=== PATIENT | male | born 1965 | race Caucasian/White ===

== ENCOUNTER 2024-09-12 16:41 | Emergency (ER) | payer MEDICAID ==
[~2024-09-12] VITALS: Ht 167.6 cm; Wt 68.0 kg
[2024-09-12] MEDS ORDERED: TDAP [DIPH/PERTUSSIS/TET] 0.5 ML VIAL IM ONE (17:35)
[2024-09-12] MEDS ORDERED: HALOPERIDOL LACTATE INJ 5 MG/ML VIAL ONE ×2 (17:35→19:41)
[2024-09-12] MEDS: TDAP [DIPH/PERTUSSIS/TET] 0.5 ML VIAL IM ONE (17:42)
[2024-09-12] MEDS: HALOPERIDOL LACTATE INJ 5 MG/ML VIAL IM ONE ×2 (17:42→19:43)
[2024-09-12] MEDS ORDERED: ACET-637 PO (19:30)
[2024-09-12] MEDS ORDERED: ACET325T53 PO (19:30)
[2024-09-12] MEDS ORDERED: ALBU8.5H8 IH (19:30)
[2024-09-12] MEDS ORDERED: ASPI-1420 PO (19:30)
[2024-09-12] MEDS ORDERED: GABA600T12 PO (19:30)
[2024-09-12] MEDS ORDERED: DIVA-78 PO (19:30)
[2024-09-12] MEDS ORDERED: ATOR40TA PO (19:30)
[2024-09-12] MEDS ORDERED: NICO-676 TP (19:30)
[2024-09-12] MEDS ORDERED: POLY119P17 PO (19:30)
[2024-09-12] MEDS ORDERED: MELA5TAB PO (19:30)
[2024-09-12] MEDS ORDERED: DOCU100C36 PO (19:30)
[2024-09-12] MEDS ORDERED: CHOL100043 PO (19:30)
[2024-09-12] MEDS ORDERED: MULT-213 PO (19:30)
[2024-09-12] MEDS ORDERED: DIVA250T4 PO (19:30)
[2024-09-12] MEDS ORDERED: CYAN100096 PO (19:30)
[2024-09-12] MEDS ORDERED: FLUT1BLS14 IH (19:30)
[2024-09-12] MEDS ORDERED: PRAM0.5T3 PO (19:30)
[2024-09-12] MEDS ORDERED: FOLI0.8T3 PO (19:30)
[2024-09-12] MEDS ORDERED: TIOT18CA3 IH (19:31)
[2024-09-12] MEDS ORDERED: THIA100T68 PO (19:31)
[2024-09-12] MEDS ORDERED: OLAN7.5T3 PO (19:31)
[2024-09-12] MEDS ORDERED: TRAZ-182 PO (19:31)
[2024-09-12] MEDS ORDERED: SERT25TA5 PO (19:31)
[2024-09-12 20:26] LABS: BASOPHILS # (AUTO) 0.1 K/uL (0.0-0.2); BASOPHILS % (AUTO) 0.4 % (0.0-2.0); EOSINOPHILS % (AUTO) 0.3 % (0.0-6.0); HEMATOCRIT 44 % (39-51); HEMOGLOBIN 14.7 g/dL (13.5-17.5); LYMPHOCYTES # (AUTO) 1.6 K/uL (0.8-4.8); LYMPHOCYTES % (AUTO) 12.9 % (20.0-44.0); MEAN CORPUSCULAR HEMOGLOBIN 31 PG (26.0-33.0); MEAN CORPUSCULAR HGB CONC 34 g/dl (31.0-36.0); MEAN CORPUSCULAR VOLUME 91 fL (80-96); MONOCYTES # (AUTO) 1.2 K/uL (0.1-1.30); MONOCYTES % (AUTO) 9.7 % (2.0-12.0); NEUTROPHILS # (AUTO) 9.5 K/uL (1.8-8.9); NEUTROPHILS % (AUTO) 76.7 % (43.0-81.0); PLATELET COUNT (AUTO) 317 K/uL (150-450); RED BLOOD CELL COUNT(AUTO) 4.82 MIL/uL (4.5-6.0); RED CELL DISTRIBUTION WIDTH 14.6 % (11.5-15.0); WHITE BLOOD COUNT (AUTO) 12.4 K/uL (4.3-11.0)
[2024-09-12] MEDS ORDERED: LORAZEPAM INJ 2 MG/ML VIAL ONE ×2 (20:29→20:58)
[2024-09-12] MEDS: IV NS 0.9% 500 ML BAG IV ONE (20:30)
[2024-09-12] MEDS: LORAZEPAM INJ 2 MG/ML VIAL IV ONE ×2 (20:32→21:03)
[2024-09-12 20:48] LABS: CALCIUM, SERUM 9.4 mg/dL (8.5-10.1); CREATININE 0.9 mg/dL (0.6-1.3); POTASSIUM 4.3 mmol/L (3.5-5.1)
[2024-09-13 00:30] VITALS: BP 119/68; TEMP 97.9; O2SAT 99
== END 2024-09-13 00:30 ==
LOC: ER 17:36
DX: S01.01XA Laceration without foreign body of scalp, initial encounter (principal); S01.111A Laceration without foreign body of right eyelid and periocular area, initial encounter; G20.A1 Parkinson's disease without dyskinesia, without mention of fluctuations; J44.9 Chronic obstructive pulmonary disease, unspecified; F02.84 Dementia in other diseases classified elsewhere, unspecified severity, with anxiety; F02.811 Dementia in other diseases classified elsewhere, unspecified severity, with agitation; Z23 Encounter for immunization; Z79.51 Long term (current) use of inhaled steroids; Z79.899 Other long term (current) drug therapy; Z88.0 Allergy status to penicillin; W18.30XA Fall on same level, unspecified, initial encounter; Y93.89 Activity, other specified; Y92.89 Other specified places as the place of occurrence of the external cause; Y99.8 Other external cause status
CPT/HCPCS: 99285; 96374; 70450; 90471; 90715; 96376; 85025; 80048; 36415; 96372; J2060 ×2; J1630 ×2; J7040

== ENCOUNTER 2024-09-15 14:04 | Inpatient (IN) | payer MEDICAID ==
[~2024-09-15] VITALS: Ht 167.6 cm; Wt 61.2 kg
[~2024-09-15 14:04] MED LIST: ACET-637 PO; ACET325T53 PO; ALBU8.5H8 IH; ASPI-1420 PO; ATOR40TA PO; CHOL100043 PO; CYAN100096 PO; DIVA-78 PO; DIVA250T4 PO; DOCU100C36 PO; FLUT1BLS14 IH; FOLI0.8T3 PO; GABA600T12 PO; MELA5TAB PO; MULT-213 PO; NICO-676 TP; OLAN7.5T3 PO; POLY119P17 PO; PRAM0.5T3 PO; SERT25TA5 PO; THIA100T68 PO; TIOT18CA3 IH; TRAZ-182 PO
[2024-09-15] MEDS: IV NS 0.9% 1,000 ML BAG IV ONE ×2 (14:15→16:00)
[2024-09-15] MEDS ORDERED: ACETAMINOPHEN 650 MG/SUPP.RECT RC ONE ×2 (14:24→14:25)
[2024-09-15] MEDS: ACETAMINOPHEN 650 MG/SUPP.RECT RC ONE (14:25)
[2024-09-15 14:29] LABS: BASOPHILS # (AUTO) 0.1 K/uL (0.0-0.2); BASOPHILS % (AUTO) 0.3 % (0.0-2.0); HEMATOCRIT 45 % (39-51); HEMOGLOBIN 14.7 g/dL (13.5-17.5); LYMPHOCYTES # (AUTO) 0.8 K/uL (0.8-4.8); LYMPHOCYTES % (AUTO) 3.7 % (20.0-44.0); MEAN CORPUSCULAR HEMOGLOBIN 30 PG (26.0-33.0); MEAN CORPUSCULAR HGB CONC 33 g/dl (31.0-36.0); MEAN CORPUSCULAR VOLUME 90 fL (80-96); MONOCYTES % (AUTO) 9.3 % (2.0-12.0); NEUTROPHILS % (AUTO) 86.7 % (43.0-81.0); PLATELET COUNT (AUTO) 302 K/uL (150-450); RED BLOOD CELL COUNT(AUTO) 4.97 MIL/uL (4.5-6.0); RED CELL DISTRIBUTION WIDTH 15.7 % (11.5-15.0); WHITE BLOOD COUNT (AUTO) 21.9 K/uL (4.3-11.0)
[2024-09-15 14:38] LABS: CALCIUM, SERUM 9.5 mg/dL (8.5-10.1); CARBON DIOXIDE 28 mmol/L (21-32); CHLORIDE 104 mmol/L (98-107); GLUCOSE 145 mg/dL (74-106); POTASSIUM 3.9 mmol/L (3.5-5.1); SODIUM SERUM 141 mmol/L (136-145); UREA NITROGEN, BLOOD 23 mg/dL (7-18)
[2024-09-15 14:41] LABS: ALANINE AMINOTRANSFERASE 87 U/L (12-78); ALBUMIN 3.3 g/dL (3.4-5.0); ALKALINE PHOSPHATASE 102 U/L (46-116); ASPARTATE AMINOTRANSFERASE 112 U/L (15-37); BILIRUBIN,DIRECT 0.3 mg/dL (0.0-0.2); BILIRUBIN,TOTAL 1.4 mg/dL (0.2-1.0); INR 1.08 (0.91-1.10); PARTIAL THROMBOPLASTIN TIME 25.4 SEC (24.3-34.3); PROTHROMBIN TIME 11.4 SECS (9.2-11.1); TOTAL PROTEIN, SERUM 8.2 g/dL (6.4-8.2)
[2024-09-15] MEDS: CEFEPIME 1 GM in IV D5W 50 ML IV ONE (14:45)
[2024-09-15 14:47] LABS: LACTIC ACID 3.5 mmol/L (0.4-2.0)
[2024-09-15 15:14] LABS: APPEARANCE,URINE CLEAR (CLEAR); BILIRUBIN,URINE 1+ (NEGATIVE); BLOOD, URINE NEGATIVE Ery/uL (NEGATIVE); COLOR,URINE YELLOW (YELLOW); KETONES,URINE TRACE mg/dL (NEGATIVE); LEUKOCYTE ESTERASE ,URINE NEGATIVE (NEGATIVE); NITRITE, URINE NEGATIVE (NEGATIVE); PROTEIN,URINE 2+ mg/dl (NEGATIVE); UGLUCOSE NEGATIVE (NEGATIVE)
[2024-09-15 15:17] LABS: ADD URINE CULTURE NO; BACTERIA,URINE Rare /HPF (None Seen); RBC,URINE 0-2 /HPF (0-2); WBC,URINE 0-2 /HPF (0-3)
[2024-09-15 15:18] LABS: SQUAMOUS EPITHELIAL CELL,UR None Seen /HPF (None Seen)
[2024-09-15] MEDS ORDERED: LORAZEPAM INJ 2 MG/ML VIAL ONE (15:46)
[2024-09-15] MEDS: VANCOMYCIN 1 GM in IV D5W 250 ML IV ONE (16:00)
[2024-09-15] MEDS: LORAZEPAM INJ 2 MG/ML VIAL IV ONE (16:21)
[2024-09-15] MEDS ORDERED: IOHEXOL-300 100 ML VIAL IV ONE ×2 (16:32→17:36)
[2024-09-15] MEDS ORDERED: IV NS 0.9% 0 ML IV ONE (16:32)
[2024-09-15] MEDS ORDERED: CT SWABBABLE VALVE TRANS SET 1 EA INFUS.SET MC ONE ×2 (16:32→17:38)
[2024-09-15] MEDS ORDERED: IV NS 0.9% 250 ML IV ONE (17:37)
[2024-09-15] MEDS ORDERED: KETAMINE HCL (500MG/10ML) 50 MG/ML VIAL ONE (18:55)
[2024-09-15] MEDS ORDERED: PROPOFOL 0 ML IV ONE (19:19)
[2024-09-15] MEDS: KETAMINE HCL (500MG/10ML) 50 MG/ML VIAL IV ONE (19:36)
[2024-09-15] MEDS ORDERED: MAGNESIUM HYDROXIDE 30 ML UDC PO PRN (21:00)
[2024-09-15] MEDS ORDERED: ACETAMINOPHEN 325 MG TABLET PO PRN (21:00)
[2024-09-15] MEDS ORDERED: ALBUTEROL FS 2.5 MG/3 ML VIAL.NEB NEB PRN (21:00)
[2024-09-15] MEDS ORDERED: ONDANSETRON HCL/PF 4 MG/2 ML VIAL IVP PRN (21:00)
[2024-09-15] MEDS ORDERED: MAG HYDROX/AL HYDROX/SIMETH 30 ML UDC PO PRN (21:00)
[2024-09-15] MEDS ORDERED: Z GUARD REMEDY 4 OZ OINT TP PRN (21:00)
[2024-09-15] MEDS: ENOXAPARIN SODIUM 40 MG/0.4 ML DISP.SYRIN SQ SCH (23:00)
[2024-09-15] MEDS ORDERED: ENOXAPARIN SODIUM 40 MG/0.4 ML DISP.SYRIN SQ ONE (23:11)
[2024-09-16] MEDS: DILTIAZEM HCL 25 MG IV IV ONE (06:06)
[2024-09-16 07:00] LABS: BASOPHILS % (AUTO) 0.2 % (0.0-2.0); EOSINOPHILS % (AUTO) 0.1 % (0.0-6.0); HEMATOCRIT 39 % (39-51); HEMOGLOBIN 12.9 g/dL (13.5-17.5); LYMPHOCYTES # (AUTO) 1.3 K/uL (0.8-4.8); LYMPHOCYTES % (AUTO) 8.5 % (20.0-44.0); MEAN CORPUSCULAR HEMOGLOBIN 30 PG (26.0-33.0); MEAN CORPUSCULAR HGB CONC 33 g/dl (31.0-36.0); MEAN CORPUSCULAR VOLUME 91 fL (80-96); MONOCYTES # (AUTO) 1.2 K/uL (0.1-1.30); MONOCYTES % (AUTO) 7.7 % (2.0-12.0); NEUTROPHILS # (AUTO) 12.7 K/uL (1.8-8.9); NEUTROPHILS % (AUTO) 83.5 % (43.0-81.0); PLATELET COUNT (AUTO) 222 K/uL (150-450); RED BLOOD CELL COUNT(AUTO) 4.29 MIL/uL (4.5-6.0); RED CELL DISTRIBUTION WIDTH 15.4 % (11.5-15.0); WHITE BLOOD COUNT (AUTO) 15.1 K/uL (4.3-11.0)
[2024-09-16 07:13] LABS: ALBUMIN 2.5 g/dL (3.4-5.0); BILIRUBIN,DIRECT 0.3 mg/dL (0.0-0.2); BILIRUBIN,TOTAL 1.1 mg/dL (0.2-1.0); CALCIUM, SERUM 8.8 mg/dL (8.5-10.1); CREATININE 0.7 mg/dL (0.6-1.3); MAGNESIUM 1.9 mg/dL (1.8-2.4); PHOSPHORUS 2.5 mg/dL (2.5-4.9); POTASSIUM 3.5 mmol/L (3.5-5.1); TOTAL PROTEIN, SERUM 6.6 g/dL (6.4-8.2)
[2024-09-16] MEDS ORDERED: ACETAMINOPHEN ES 500 MG TABLET PO PRN (08:00)
[2024-09-16] MEDS ORDERED: CEFEPIME 1 GM in IV D5W 50 ML IV SCH (08:00)
[2024-09-16] MEDS ORDERED: ACETAMINOPHEN 325 MG TABLET PO PRN (08:00)
[2024-09-16] MEDS: VANCOMYCIN HCL 1.25 GM in IV D5W 250 ML IV SCH (08:55)
[2024-09-16] MEDS: IV LR 500 ML IV ONE (08:56)
[2024-09-16] MEDS: DOCUSATE SODIUM 100 MG CAPSULE PO SCH (09:00)
[2024-09-16] MEDS: SERTRALINE HCL 25 MG TABLET PO SCH (09:00)
[2024-09-16] MEDS: CHOLECALCIFEROL 1,000 UNIT TABLET (VIT D3) PO SCH (09:00)
[2024-09-16] MEDS: FOLIC ACID 1 MG TABLET PO SCH (09:00)
[2024-09-16] MEDS: CEFEPIME 2 GM in IV D5W 100 ML IV SCH (09:00)
[2024-09-16] MEDS: POLYETHYLENE GLYCOL 3350 17 GM POWD.PACK PO SCH (09:00)
[2024-09-16] MEDS: CYANOCOBALAMIN 500 MCG TABLET PO SCH (09:00)
[2024-09-16] MEDS: MULTIVIT W/MINERALS 1 TAB TABLET PO SCH (09:00)
[2024-09-16] MEDS: THIAMINE HCL 100 MG TABLET PO SCH (09:00)
[2024-09-16] MEDS ORDERED: PANTOPRAZOLE 40 MG VIAL ONE (09:36)
[2024-09-16] MEDS: PANTOPRAZOLE 40 MG VIAL IV SCH (09:40)
[2024-09-16] MEDS: AMIODARONE 150 MG in IV D5W 100 ML IV ONE (12:00)
[2024-09-16] MEDS: AMIODARONE 450 MG in IV D5W 241 ML IV PRN (12:22)
[2024-09-16] MEDS: LEVALBUTEROL HCL NEB 1.25 MG/0.5 ML VIAL.NEB NEB SCH (13:30)
[2024-09-16] MEDS: methylPREDNISolone SOD SUCC 40 MG/ML VIAL IV SCH (13:30)
[2024-09-16] MEDS: ENOXAPARIN SODIUM 60 MG/0.6 ML DISP.SYRIN SQ SCH (15:00)
[2024-09-16] MEDS ORDERED: ENOXAPARIN SODIUM 60 MG/0.6 ML DISP.SYRIN SQ ONE (15:54)
[2024-09-16] MEDS ORDERED: methylPREDNISolone SOD SUCC 40 MG/ML VIAL ONE (15:55)
[2024-09-16] MEDS ORDERED: DIGOXIN INJ 0.5 MG/2 ML AMPUL ONE (17:58)
[2024-09-16] MEDS: DIGOXIN INJ 0.5 MG/2 ML AMPUL IV SCH (18:08)
[2024-09-16] MEDS ORDERED: ALBUTEROL FS 2.5 MG/0.5 ML VIAL.NEB NEB SCH (19:30)
[2024-09-16] MEDS: OLANZAPINE 2.5 MG TABLET PO SCH (21:00)
[2024-09-16 21:42] VITALS: O2SAT 97
[2024-09-16] MEDS: IV LR 1000 ML 1,000 ML IV PRN (21:46)
[2024-09-16 21:52] VITALS: O2SAT 100
[2024-09-16] MEDS: IPRATROPIUM NEB FS 0.5 MG/2.5 ML AMPUL.NEB NEB PRN (21:58)
[2024-09-16 22:00] VITALS: BP 109/94; TEMP 98.2; O2SAT 100
[2024-09-16] MEDS: TRAZODONE 50 MG TABLET PO SCH (22:00)
[2024-09-16] MEDS: ASPIRIN EC 81 MG TABLET.DR PO SCH (22:00)
[2024-09-16] MEDS: PRAMIPEXOLE DI-HCL 0.25 MG TABLET PO SCH (22:00)
[2024-09-16] MEDS: ATORVASTATIN 40 MG TABLET PO SCH (22:00)
[2024-09-16] MEDS: GABAPENTIN 300 MG CAPSULE PO SCH (22:00)
[2024-09-16] MEDS: LORAZEPAM INJ 2 MG/ML VIAL IV ONE (23:13)
[2024-09-17] VITALS (14 sets, daily range): BP systolic 100–126; BP diastolic 50–94; TEMP 97.7–99.5; O2SAT 94–100
[2024-09-17 08:14] LABS: ABG BASE EXCESS -2.1 mmol/L (-2.0-3.0); ABG OXYGEN SATURATION 94.6 % (94.0-98.0); ABG PH 7.495 (7.350-7.450); ABG TOTAL HEMOGLOBIN 13.6 G/dL (13.5-17.5); COHb 0.3 % (0.5-1.5); MetHb 0.2 % (0.0-1.5); O2Hb 94.1 % (94.0-97.0); SITE, ABG RIGHT RADIAL
[2024-09-17 08:24] LABS: BASOPHILS % (AUTO) 0.1 % (0.0-2.0); HEMATOCRIT 39 % (39-51); HEMOGLOBIN 12.8 g/dL (13.5-17.5); LYMPHOCYTES # (AUTO) 1.1 K/uL (0.8-4.8); LYMPHOCYTES % (AUTO) 8.8 % (20.0-44.0); MEAN CORPUSCULAR HEMOGLOBIN 30 PG (26.0-33.0); MEAN CORPUSCULAR HGB CONC 33 g/dl (31.0-36.0); MEAN CORPUSCULAR VOLUME 91 fL (80-96); MONOCYTES # (AUTO) 1.1 K/uL (0.1-1.30); MONOCYTES % (AUTO) 8.9 % (2.0-12.0); NEUTROPHILS # (AUTO) 9.9 K/uL (1.8-8.9); NEUTROPHILS % (AUTO) 82.2 % (43.0-81.0); PLATELET COUNT (AUTO) 238 K/uL (150-450); RED BLOOD CELL COUNT(AUTO) 4.29 MIL/uL (4.5-6.0); RED CELL DISTRIBUTION WIDTH 15.5 % (11.5-15.0); WHITE BLOOD COUNT (AUTO) 12.1 K/uL (4.3-11.0)
[2024-09-17 08:29] LABS: CALCIUM, SERUM 8.9 mg/dL (8.5-10.1); CREATININE 0.7 mg/dL (0.6-1.3); POTASSIUM 3.9 mmol/L (3.5-5.1)
[2024-09-17] MEDS: ENOXAPARIN SODIUM 40 MG/0.4 ML DISP.SYRIN SQ SCH (15:33)
[2024-09-18] VITALS (10 sets, daily range): BP systolic 112–150; BP diastolic 59–93; TEMP 97.5–99.1; O2SAT 92–100
[2024-09-18 09:54] LABS: BASOPHILS % (AUTO) 0.3 % (0.0-2.0); EOSINOPHILS % (AUTO) 0.1 % (0.0-6.0); HEMATOCRIT 40 % (39-51); LYMPHOCYTES # (AUTO) 1.1 K/uL (0.8-4.8); LYMPHOCYTES % (AUTO) 8.2 % (20.0-44.0); MEAN CORPUSCULAR HEMOGLOBIN 30 PG (26.0-33.0); MEAN CORPUSCULAR HGB CONC 33 g/dl (31.0-36.0); MEAN CORPUSCULAR VOLUME 91 fL (80-96); MONOCYTES # (AUTO) 1.1 K/uL (0.1-1.30); MONOCYTES % (AUTO) 8.8 % (2.0-12.0); NEUTROPHILS # (AUTO) 10.7 K/uL (1.8-8.9); NEUTROPHILS % (AUTO) 82.6 % (43.0-81.0); PLATELET COUNT (AUTO) 266 K/uL (150-450); RED BLOOD CELL COUNT(AUTO) 4.39 MIL/uL (4.5-6.0); RED CELL DISTRIBUTION WIDTH 15.3 % (11.5-15.0)
[2024-09-18 10:18] LABS: CALCIUM, SERUM 9.2 mg/dL (8.5-10.1); CREATININE 0.7 mg/dL (0.6-1.3); POTASSIUM 3.4 mmol/L (3.5-5.1)
[2024-09-18] MEDS: VANCOMYCIN 1 GM in IV D5W 250ml IV SCH (16:17)
[2024-09-18] MEDS: OLANZAPINE 10 MG VIAL IM ONE (20:46)
[2024-09-18] MEDS: QUETIAPINE FUMARATE 25 MG TABLET PO SCH (22:00)
[2024-09-19] VITALS (8 sets, daily range): BP systolic 128–153; BP diastolic 63–75; TEMP 97.9–99.1; O2SAT 93–100
[2024-09-19 07:54] LABS: BASOPHILS % (AUTO) 0.1 % (0.0-2.0); EOSINOPHILS % (AUTO) 0.1 % (0.0-6.0); HEMATOCRIT 39 % (39-51); LYMPHOCYTES % (AUTO) 8.2 % (20.0-44.0); MEAN CORPUSCULAR HEMOGLOBIN 30 PG (26.0-33.0); MEAN CORPUSCULAR HGB CONC 34 g/dl (31.0-36.0); MEAN CORPUSCULAR VOLUME 90 fL (80-96); MONOCYTES # (AUTO) 1.2 K/uL (0.1-1.30); MONOCYTES % (AUTO) 10.3 % (2.0-12.0); NEUTROPHILS # (AUTO) 9.7 K/uL (1.8-8.9); NEUTROPHILS % (AUTO) 81.3 % (43.0-81.0); PLATELET COUNT (AUTO) 281 K/uL (150-450); RED BLOOD CELL COUNT(AUTO) 4.32 MIL/uL (4.5-6.0); WHITE BLOOD COUNT (AUTO) 11.9 K/uL (4.3-11.0)
[2024-09-19 08:22] LABS: CREATININE 0.7 mg/dL (0.6-1.3); MAGNESIUM 2.2 mg/dL (1.8-2.4); PHOSPHORUS 3.4 mg/dL (2.5-4.9); POTASSIUM 3.3 mmol/L (3.5-5.1)
[2024-09-19] MEDS: POTASSIUM CL. PREMIX PERIPHER. 50 ML IV SCH (11:47)
[2024-09-19] MEDS: VANCOMYCIN HCL 1.25 GM in IV D5W 250 ML IV SCH (23:20)
[2024-09-19] MEDS ORDERED: MUPIROCIN OINT 2% 22 GM TUBE ONE (23:56)
[2024-09-20] MEDS: MUPIROCIN OINT 2% 22 GM TUBE NS SCH (00:03)
[2024-09-20 00:08] VITALS: BP 114/66; TEMP 98.1; O2SAT 100
[2024-09-20 05:47] VITALS: BP 102/77; TEMP 97.9; O2SAT 100
[2024-09-20 06:52] LABS: BASOPHILS % (AUTO) 0.1 % (0.0-2.0); EOSINOPHILS # (AUTO) 0.1 K/uL (0.0-0.7); EOSINOPHILS % (AUTO) 0.7 % (0.0-6.0); HEMATOCRIT 41 % (39-51); HEMOGLOBIN 13.5 g/dL (13.5-17.5); LYMPHOCYTES # (AUTO) 1.1 K/uL (0.8-4.8); LYMPHOCYTES % (AUTO) 9.7 % (20.0-44.0); MEAN CORPUSCULAR HEMOGLOBIN 30 PG (26.0-33.0); MEAN CORPUSCULAR HGB CONC 33 g/dl (31.0-36.0); MEAN CORPUSCULAR VOLUME 91 fL (80-96); MONOCYTES # (AUTO) 1.2 K/uL (0.1-1.30); MONOCYTES % (AUTO) 10.2 % (2.0-12.0); NEUTROPHILS # (AUTO) 9.4 K/uL (1.8-8.9); NEUTROPHILS % (AUTO) 79.3 % (43.0-81.0); PLATELET COUNT (AUTO) 275 K/uL (150-450); RED BLOOD CELL COUNT(AUTO) 4.54 MIL/uL (4.5-6.0); RED CELL DISTRIBUTION WIDTH 15.6 % (11.5-15.0); WHITE BLOOD COUNT (AUTO) 11.8 K/uL (4.3-11.0)
[2024-09-20 06:55] LABS: CALCIUM, SERUM 8.7 mg/dL (8.5-10.1); CREATININE 0.6 mg/dL (0.6-1.3); MAGNESIUM 2.4 mg/dL (1.8-2.4); PHOSPHORUS 3.3 mg/dL (2.5-4.9); POTASSIUM 3.3 mmol/L (3.5-5.1)
[2024-09-20 08:00] VITALS: BP 119/59; TEMP 98.1; O2SAT 95
[2024-09-20] MEDS: POTASSIUM CHLORIDE 20 MEQ TAB.PRT.SR PO SCH (11:04)
[2024-09-20] MEDS: ENSURE ENLIVE 237 ML LIQUID (VANILLA) PO SCH (11:07)
[2024-09-20 12:00] VITALS: BP 113/73; TEMP 98.6; O2SAT 93
[2024-09-20 16:00] VITALS: BP 111/68; TEMP 98.5; O2SAT 95
[2024-09-20 20:00] VITALS: BP 127/73; TEMP 98.1; O2SAT 99
[2024-09-21] VITALS (7 sets, daily range): BP systolic 102–149; BP diastolic 63–92; TEMP 97.5–98.6; O2SAT 93–100
[2024-09-21 09:16] LABS: CALCIUM, SERUM 9.2 mg/dL (8.5-10.1); CREATININE 0.6 mg/dL (0.6-1.3); POTASSIUM 3.7 mmol/L (3.5-5.1)
[2024-09-21] MEDS: PANTOPRAZOLE 40 MG TABLET.DR PO SCH (11:16)
[2024-09-21] MEDS: VANCOMYCIN 1 GM in IV D5W 250 ML IV SCH (12:33)
[2024-09-21 13:58] LABS: ALBUMIN 2.6 g/dL (3.4-5.0); BILIRUBIN,DIRECT 0.2 mg/dL (0.0-0.2); BILIRUBIN,TOTAL 0.8 mg/dL (0.2-1.0); TOTAL PROTEIN, SERUM 6.6 g/dL (6.4-8.2)
[2024-09-21] MEDS: OLANZAPINE 2.5 MG TABLET PO ONE (18:41)
[2024-09-22] VITALS (12 sets, daily range): BP systolic 94–150; BP diastolic 65–91; TEMP 97.3–98.6; O2SAT 94–99
[2024-09-22 06:38] LABS: CREATININE 0.6 mg/dL (0.6-1.3); POTASSIUM 3.5 mmol/L (3.5-5.1)
== END 2024-09-22 18:29 | disposition short-term general hospital (02) | DRG 720 ==
LOC: ER 14:08 → TRANSITION 09-16 00:15 → ICU 09-16 19:52 → UNDODISIN 09-16 20:08 → TELE-TD 09-16 20:30 → TELE1 09-17 09:31
PROVIDERS: ADMIT Nurse Practitioner Family; ATTEND Nurse Practitioner Acute Care
PROC: 0W9930Z Drainage of Right Pleural Cavity with Drainage Device, Percutaneous Approach (ICD-10-PCS; principal; 2024-09-16)
DX: A41.9 Sepsis, unspecified organism (principal); J96.01 Acute respiratory failure with hypoxia; N17.0 Acute kidney failure with tubular necrosis; J69.0 Pneumonitis due to inhalation of food and vomit; G93.41 Metabolic encephalopathy; E87.20 Acidosis, unspecified; E44.0 Moderate protein-calorie malnutrition; S22.41XA Multiple fractures of ribs, right side, initial encounter for closed fracture; E88.09 Other disorders of plasma-protein metabolism, not elsewhere classified; J93.9 Pneumothorax, unspecified; E46 Unspecified protein-calorie malnutrition; Z20.822 Contact with and (suspected) exposure to COVID-19; G20.A1 Parkinson's disease without dyskinesia, without mention of fluctuations; F02.83 Dementia in other diseases classified elsewhere, unspecified severity, with mood disturbance; F32.A Depression, unspecified; J44.0 Chronic obstructive pulmonary disease with (acute) lower respiratory infection; J44.1 Chronic obstructive pulmonary disease with (acute) exacerbation; Z86.73 Personal history of transient ischemic attack (TIA), and cerebral infarction without residual deficits; F41.9 Anxiety disorder, unspecified; F29 Unspecified psychosis not due to a substance or known physiological condition; F02.84 Dementia in other diseases classified elsewhere, unspecified severity, with anxiety; F02.82 Dementia in other diseases classified elsewhere, unspecified severity, with psychotic disturbance; Z88.0 Allergy status to penicillin; Z79.51 Long term (current) use of inhaled steroids; Z79.82 Long term (current) use of aspirin; Z79.899 Other long term (current) drug therapy; I25.10 Atherosclerotic heart disease of native coronary artery without angina pectoris; I48.91 Unspecified atrial fibrillation; E80.6 Other disorders of bilirubin metabolism; R73.9 Hyperglycemia, unspecified; Z78.1 Physical restraint status; Z87.891 Personal history of nicotine dependence; F39 Unspecified mood [affective] disorder; J43.2 Centrilobular emphysema; E78.5 Hyperlipidemia, unspecified; X58.XXXA Exposure to other specified factors, initial encounter; Y92.9 Unspecified place or not applicable
CPT/HCPCS: 36415; 70450-TC; 71045-TC; 71260-TC; 80048-TC; 80076-TC; 80202-TC; 81001; 82140-TC; 82803-TC; 83605-TC; 83735-TC; 84100-TC; 84484-TC; 85025-TC; 85730-TC; 87040-TC; 87081-TC; 87086-TC; 92526; 92611-TC; 93307-TC; 94760-TC; 94799-TC; A4223; G0378; J0282; J0692; J1160; J1650; J2060; J2470; J2704; J2919; J3370; J3480; J3490; J7030; J7050; J7060; J7120; Q9967